=== PATIENT | male | born 1950 | race Caucasian/White ===

== ENCOUNTER 2021-10-30 13:09 | Emergency (ER) | payer MEDICARE, OTHER ==
[2021-10-30] MEDS ORDERED: NORCO 5-325 TA1 EACH PO (16:25)
== END 2021-10-30 16:37 | disposition home or self-care (01) ==
LOC: FER 13:09
DX: S22.42XA Multiple fractures of ribs, left side, initial encounter for closed fracture (principal); E78.5 Hyperlipidemia, unspecified; Z79.899 Other long term (current) drug therapy; W01.0XXA Fall on same level from slipping, tripping and stumbling without subsequent striking against object, initial encounter; Y92.828 Other wilderness area as the place of occurrence of the external cause
CPT/HCPCS: 71250; 94010